=== PATIENT | female | born 1940 | race Caucasian/White ===

== ENCOUNTER 2020-06-04 07:11 | Outpatient (CLI) | payer OTHER ==
[~2020-06-04 07:11] MED LIST: CARDIZEM CD300 MG; COZAAR100 MG; INTEGRA F CAPSULE PO; INTEGRA PLUS C1 EACH PO; NABUMETONE500 MG PO; NORVASC5 MG; OXYC1TAB9 PO; SEPTRA DS TABLE1 TAB; SYNTHROID88 MCG; XARELTO 10MG PO; XARELTO10 MG; XARELTO10 MG PO
== END 2020-06-04 07:28 | disposition home or self-care (01) ==
LOC: NUCLEAR 07:11
PROVIDERS: ATTEND Internal Medicine Cardiovascular Disease
DX: I25.118 Atherosclerotic heart disease of native coronary artery with other forms of angina pectoris (principal); I70.0 Atherosclerosis of aorta; I25.2 Old myocardial infarction
CPT/HCPCS: 78452; 93017; A9500; J0153

== ENCOUNTER 2023-05-17 13:30 | Emergency (ER) | payer OTHER ==
[~2023-05-17] VITALS: Ht 165.1 cm; Wt 68.0 kg
[2023-05-17 15:25] LABS: HEMATOCRIT 33.5 % (36.0-45.00); HEMOGLOBIN 11.4 g/dL (12.0-15.00); MEAN CELL VOLUME 86.6 fL (80.00-100.00); MEAN CORPUSCULAR HEMOGLOBIN 29.5 pg (27.00-32.0); PLATELET COUNT 387 K/uL (150-450); RED BLOOD COUNT 3.87 M/uL (4.00-6.00); RED CELL DISTRIBUTION WIDTH 15.4 % (11.5-14.5)
[2023-05-17 15:41] LABS: INR 0.94; PARTIAL THROMBOPLASTIN TIME 25.5 SECONDS (22.0-34.0); PROTHROMBIN TIME 9.9 SECONDS (9.0-11.5)
[2023-05-17 15:45] LABS: CALCIUM 8.9 mg/dL (8.5-10.1); CREATININE SERUM 0.92 mg/dL (0.55-1.02); GFR 58.59; POTASSIUM 4.3 mEq/L (3.5-5.1)
== END 2023-05-17 19:25 | disposition home or self-care (01) ==
LOC: ER 13:30
PROVIDERS: General Practice
DX: R55 Syncope and collapse (principal); Z88.2 Allergy status to sulfonamides; J45.909 Unspecified asthma, uncomplicated; I10 Essential (primary) hypertension; E78.00 Pure hypercholesterolemia, unspecified